=== PATIENT | female | born 1985 | race Caucasian/White ===

== ENCOUNTER 2022-12-24 18:41 | Emergency (ER) | payer SELFPAY ==
[2022-12-24] MEDS ORDERED: HYDROCODONE/APAP 10/325 TAB ONE (19:10)
[2022-12-24] MEDS ORDERED: KETOROLAC 30 MG/ML INJ ONE (19:10)
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
[2022-12-24 22:29] VITALS: BP 118/88; O2SAT 100
== END 2022-12-24 20:08 | disposition home or self-care (01) ==
LOC: ER 18:41
DX: T24.202A Burn of second degree of unspecified site of left lower limb, except ankle and foot, initial encounter (principal); T24.201A Burn of second degree of unspecified site of right lower limb, except ankle and foot, initial encounter
CPT/HCPCS: 96374; 99283